=== PATIENT | female | born 1970 | race Caucasian/White ===

== ENCOUNTER 2019-06-18 17:27 | Emergency (ER) | payer OTHER ==
[~2019-06-18] VITALS: Ht 177.8 cm; Wt 63.5 kg
[2019-06-18 17:50] VITALS: BP 108/56
--- NOTE | 2019-06-18 18:10 | NUR ---
49/F TO ED WITH C/O R HAND, #2 DIGIT PAIN SECONDARY TO LACERATION X 1 MONTH AGO. PT FEELS THAT THERE MAY BE A FOREIGN BODY STILL IN PLACE. NO DEFORMITY NOTED. IN FAST TRACK CHAIR FOR MSE.
[2019-06-18 18:30] VITALS: BP 108/56
== END 2019-06-18 18:31 | disposition home or self-care (01) ==
LOC: MED 17:27
DX: L03.113 Cellulitis of right upper limb (principal); Z91.040 Latex allergy status
CPT/HCPCS: 73130; 99283

== ENCOUNTER 2021-05-21 19:36 | Emergency (ER) | payer SELFPAY ==
[~2021-05-21] VITALS: Ht 152.4 cm; Wt 66.5 kg
[2021-05-21 19:48] VITALS: BP 134/91
--- NOTE | 2021-05-21 23:45 | NUR ---
pt called in lobby, no answer.
--- NOTE | 2021-05-21 23:50 | NUR ---
called in lobby no answer.
--- NOTE | 2021-05-22 | NUR ---
called by , no answer.
--- NOTE | 2021-05-22 00:03 | NUR ---
PATIENT LEFT WITHOUT BEING SEEN BY DR. linda. NO FURTHER CARE PROVIDED FOR PATIENT.
== END 2021-05-22 00:03 | disposition left against medical advice (07) ==
LOC: MED 19:36
DX: R21 Rash and other nonspecific skin eruption (principal); Z53.21 Procedure and treatment not carried out due to patient leaving prior to being seen by health care provider